=== PATIENT | female | born 1995 | race Caucasian/White ===

== ENCOUNTER 2016-11-02 13:07 | Emergency (ER) | payer OTHER ==
[2016-11-02 13:40] VITALS: BP 115/90
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
== END 2016-11-02 14:05 | disposition home or self-care (01) ==
LOC: UCCORT 13:07
DX: S50.311A Abrasion of right elbow, initial encounter (principal); S90.511A Abrasion, right ankle, initial encounter; S90.812A Abrasion, left foot, initial encounter; S90.811A Abrasion, right foot, initial encounter; Y04.8XXA Assault by other bodily force, initial encounter; Y93.9 Activity, unspecified; Y92.9 Unspecified place or not applicable
CPT/HCPCS: 99201; G0463